=== PATIENT | female | born 2005 | race Caucasian/White ===

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

== ENCOUNTER 2023-03-18 16:30 | Observation (INO) | payer MEDICAID ==
[2023-03-18] MEDS ORDERED: Sodium Chloride 0.9% 2.5 ML Syringe FLUSH PRN ×2 (18:10→18:42)
[2023-03-18] MEDS ORDERED: Sodium Chloride 0.9% 20 ML SDV IV PRN ×2 (18:10→18:42)
[2023-03-18] MEDS ORDERED: Magnesium Sulfate/Water 4 GM in Premix Bag 1 BAG IV ONE (18:10)
[2023-03-18] MEDS ORDERED: Calcium Gluconate 10% 1 GM/10 ML SDV IV PRN (18:10)
[2023-03-18] MEDS ORDERED: Sodium Chloride 0.9% 10 ML Syringe FLUSH PRN ×2 (18:10→18:42)
[2023-03-18] MEDS ORDERED: Magnesium Sulfate/Water 20 GM/500 ML BAG IV SCH (18:15)
[2023-03-18] MEDS ORDERED: Magnesium Sulfate/Water 100 ML ONE (18:28)
[2023-03-18] MEDS ORDERED: Magnesium Sulfate/Water 20 GM/500 ML BAG ONE (18:28)
[2023-03-18] MEDS ORDERED: Methylergonovine 0.2 MG/1 ML Amp IM PRN (18:42)
[2023-03-18] MEDS ORDERED: Misoprostol 200 MCG Tab PO PRN (18:42)
[2023-03-18] MEDS ORDERED: Nalbuphine 10 MG/0.5 ML Syringe IVPUSH PRN (18:42)
[2023-03-18] MEDS ORDERED: Tranexamic Acid IN NACL,ISO-OS 1,000 MG in Premix Bag 1 BAG IV PRN ×2 (18:42)
[2023-03-18] MEDS ORDERED: Water For Irrigation,Sterile 1,000 ML Container IRR PRN (18:42)
[2023-03-18] MEDS ORDERED: Ondansetron 4 MG/2 ML SDV IVPUSH PRN (18:42)
[2023-03-18] MEDS ORDERED: Carboprost Tromethamine 250 MCG/1 mL Vial IM PRN (18:42)
[2023-03-18] MEDS ORDERED: Lidocaine 1% 50 ML MDV INJECT PRN (18:42)
[2023-03-18] MEDS ORDERED: Sodium Chloride 0.9% 1,000 ML IV SCH (18:45)
[2023-03-18] MEDS ORDERED: Lactated Ringers 1,000 ML IV SCH (18:45)
[2023-03-18] MEDS ORDERED: Oxytocin/0.9 % Sodium Chloride 30 UNIT/500 ML BAG IV SCH (18:45)
[2023-03-18] MEDS ORDERED: ePHEDrine 50 MG/ML SDV IVPUSH PRN ×2 (19:41)
[2023-03-18] MEDS ORDERED: Phenylephrine HCl 0.5 MG/5 ML AMP IVPUSH PRN (19:41)
[2023-03-18 19:43] LABS: HEMATOCRIT 38.1 % (37.0-47.0); HEMOGLOBIN 12.8 g/dL (12.0-16.0); MEAN CORPUSCULAR HEMOGLOBIN 25.7 pg (28.0-32.0); MEAN CORPUSCULAR HGB CONC 33.6 g/dL (32.0-36.0); MEAN CORPUSCULAR VOLUME 76.5 fL (83.0-99.0); MEAN PLATELET VOLUME 9.9 fL (9.4-12.3); PLATELET COUNT,PLT 367 K/uL (150-400); RED BLOOD CELL COUNT 4.98 M/uL (4.10-5.30); WHITE BLOOD CELL COUNT,WBC 8.91 K/uL (4.5-13.5)
[2023-03-18] MEDS ORDERED: Ropivacaine HCl/PF 400 MG in Premix Bag 1 BAG EPIDUR SCH (19:45)
[2023-03-18 20:25] LABS: A/G RATIO 0.7 (0.9-1.6); ALBUMIN 2.7 g/dL (3.4-5.0); BILIRUBIN TOTAL 0.2 mg/dL (0.2-1.0); CARBON DIOXIDE,CO2 20.3 mmol/L (21.0-32.0); CREATININE 0.4 mg/dL (0.6-1.0); EST CRCL DRUG DOSING (CG) 195.34 mL/min; MAGNESIUM 3.5 mg/dL (1.8-2.4); POTASSIUM,K 3.9 mmol/L (3.5-5.1); PROTEIN TOTAL,TP 6.7 g/dL (6.4-8.2); URIC ACID 2.9 mg/dL (2.6-7.2)
[2023-03-18] MEDS ORDERED: Benzocaine/Menthol 20%-0.5% Spray 78 GM Cannister TOP PRN (22:19)
[2023-03-18] MEDS ORDERED: Lidocaine 5% Oint 35.44 GM Tube TOP ONE (22:20)
== END 2023-03-19 02:00 ==
LOC: MW.OBCHECK 16:30 → MW.OB 16:32 → MW.OBCHECK 19:03
PROVIDERS: ADMIT Obstetrics & Gynecology; ATTEND Obstetrics & Gynecology
DX: O13.3 Gestational [pregnancy-induced] hypertension without significant proteinuria, third trimester (principal); Z3A.39 39 weeks gestation of pregnancy
CPT/HCPCS: 36415; 51702; 59025; 80053; 83735; 84550; 85027; 86592; 86850; 86900; 86901; 96375; A9270; G0378; J3475; J7030; 99222